=== PATIENT | female | born 1955 | race Hispanic/Latino ===

== ENCOUNTER 2024-06-13 10:22 | Outpatient (RCR) | payer BC | END 2024-06-14 | LOC: PT 10:22 | PROVIDERS: ATTEND Specialist | DX: M17.11 Unilateral primary osteoarthritis, right knee (principal) ==

== ENCOUNTER 2024-06-30 10:00 | Outpatient (RCR) | payer BC | END 2024-07-14 | LOC: PT 10:00 | PROVIDERS: ATTEND Specialist | DX: M17.11 Unilateral primary osteoarthritis, right knee (principal) ==